=== PATIENT | female | born 1955 | race African-American/Black ===

== ENCOUNTER → 2016-11-22 | Outpatient (CLI) | payer MEDICARE, OTHER ==
[~2016-11-22] MED LIST: AGGRENOX1 CAP PO; APRESOLINE10 M1 PO; B12 5,000 MCG1 EACH SL; CATAPRES0.1 MG PO; GLUCOPHAGE500 M1 PO; LASIX PO; LIPITOR40 MG PO; LISINOPRIL20 MG PO; MEGARED PO; MULTI VITAMIN1 EACH PO; NORVASC10 MG PO; STOOL SOFTENER1 EAC1 PO; VERAPAMIL HCL240 MG PO; ZYLOPRIM100 MG PO
[2016-11-22 10:21] LABS: BASOPHIL% 0.3 % (0-2.5); EOSINOPHIL# 0.1 X10e3 (0-0.7); EOSINOPHIL% 0.8 % (0.0-7.0); HEMATOCRIT 37.4 % (35.0-45.0); HEMOGLOBIN 11.9 gm/dL (12.0-16.0); LYMPHOCYTE# 1.4 X10e3 (1.0-3.5); LYMPHOCYTE% 18.3 % (17.0-45.0); MEAN CORPUSCULAR HGB CONC 31.9 g/dL (30-36); MEAN PLATELET VOLUME 8.3 FL (6.5-11.5); MONOCYTE# 0.6 X10e3 (0-1.0); MONOCYTE% 8.3 % (3.0-12.0); NEUTROPHIL# 5.4 X10e3 (1.5-7.1); NEUTROPHIL% 72.3 % (40-75); PLATELET COUNT 224 X10e3 (140-420); RED BLOOD COUNT 3.85 X10e (3.90-5.30); RED CELL DISTRIBUTION WIDTH 13.5 % (11.0-15.5); WHITE BLOOD COUNT 7.4 X10e3 (4.0-10.5)
[2016-11-22 10:24] LABS: DIFF IND NO
[2016-11-22 10:36] LABS: BUN/CREATININE RATIO 21.42; CALCIUM SERUM 9.9 mg/dL (8.4-10.2); CREATININE SERUM 1.4 mg/dL (0.6-1.4); GLOM FILT RATE Estimated 46.2 mL/min (>60); POTASSIUM 3.8 mmol/L (3.5-5.1)
== END | disposition home or self-care (01) ==
LOC: SLAB 10:01
PROVIDERS: Internal Medicine Nephrology
DX: N18.3 Chronic kidney disease, stage 3 (moderate) (principal)
CPT/HCPCS: 36415; 80048; 85025